=== PATIENT | male | born 1950 | race Caucasian/White ===

== ENCOUNTER 2018-03-05 06:13 | Day surgery (SDC) | payer MEDICARE, OTHER ==
[~2018-03-05] VITALS: Ht 180.3 cm; Wt 112.0 kg
[~2018-03-05 06:13] MED LIST: ASPI81CH PO; Altoprev40 MG PO; Celebrex200 MG PO; Desyrel50 MG PO; EPIPEN 2-P0.3 MG/0.3 IM; FINA5 PO; Flomax0.4 MG PO; LOVA40 PO; METF500C PO; METO50ER PO; MONT10T PO; PANT40 PO; Synthroid50 MCG PO; TEMOVATE15 GM EXT; Tenormin50 MG PO; Voltaren100 GM TD
== END 2018-03-05 13:30 | disposition home or self-care (01) ==
LOC: MHTC 06:13
PROC: 4A023N7 Measurement of Cardiac Sampling and Pressure, Left Heart, Percutaneous Approach (ICD-10-PCS; principal; 2018-03-05)
PROC: 4A033BC Measurement of Arterial Pressure, Coronary, Percutaneous Approach (ICD-10-PCS; principal; 2018-03-05)
PROC: B211YZZ Fluoroscopy of Multiple Coronary Arteries using Other Contrast (ICD-10-PCS; principal; 2018-03-05)
DX: I25.10 Atherosclerotic heart disease of native coronary artery without angina pectoris (principal); R06.02 Shortness of breath; E78.5 Hyperlipidemia, unspecified; E11.9 Type 2 diabetes mellitus without complications; E66.01 Morbid (severe) obesity due to excess calories; E03.9 Hypothyroidism, unspecified; K21.9 Gastro-esophageal reflux disease without esophagitis; Z87.891 Personal history of nicotine dependence
CPT/HCPCS: 85347; 93458; 93571; 99152; 99153; C1769; C1894; J1644; J2250; J3010; J7030; Q9967

== ENCOUNTER 2018-11-19 10:37 | Day surgery (SDC) | payer MEDICARE, BC ==
[~2018-11-19] VITALS: Ht 180.3 cm; Wt 109.4 kg
[~2018-11-19 10:37] MED LIST changes: +CELE200 PO; +GABA100 PO; +LEVO-T75 MCG PO; +LOSARTAN POTAS100 MG PO; +Prozac20 MG PO; +TAMS.4ER PO; +VOLTAREN100 GM TOP
[2018-11-19] MEDS ORDERED: ASPI81CH (11:15)
== END 2018-11-19 12:40 | disposition home or self-care (01) ==
LOC: ORSCSDS 10:37
PROVIDERS: Internal Medicine Gastroenterology
PROC: 0DBK8ZX Excision of Ascending Colon, Via Natural or Artificial Opening Endoscopic, Diagnostic (ICD-10-PCS; principal; 2018-11-19 12:00)
DX: Z12.11 Encounter for screening for malignant neoplasm of colon (principal); D12.2 Benign neoplasm of ascending colon; K64.8 Other hemorrhoids; K21.9 Gastro-esophageal reflux disease without esophagitis; I10 Essential (primary) hypertension; E11.9 Type 2 diabetes mellitus without complications; G47.33 Obstructive sleep apnea (adult) (pediatric); J45.909 Unspecified asthma, uncomplicated; E66.9 Obesity, unspecified; Z68.33 Body mass index [BMI] 33.0-33.9, adult; Z79.82 Long term (current) use of aspirin; Z79.84 Long term (current) use of oral hypoglycemic drugs; Z79.899 Other long term (current) drug therapy; Z87.891 Personal history of nicotine dependence
CPT/HCPCS: 82947; 88305; J7120

== ENCOUNTER 2019-01-04 17:31 | Emergency (ER) | payer MEDICARE, BC ==
[~2019-01-04] VITALS: Ht 180.3 cm; Wt 108.9 kg
[~2019-01-04 17:31] MED LIST changes: +ASPI81CH
[2019-01-04] MEDS ORDERED: Norco 5-325 Ta1 EACH PO (19:53)
== END 2019-01-04 20:06 | disposition home or self-care (01) ==
LOC: ER 17:31
DX: S43.004A Unspecified dislocation of right shoulder joint, initial encounter (principal); M54.9 Dorsalgia, unspecified; W01.198A Fall on same level from slipping, tripping and stumbling with subsequent striking against other object, initial encounter; Z88.8 Allergy status to other drugs, medicaments and biological substances; Z91.010 Allergy to peanuts; Z79.899 Other long term (current) drug therapy; Z79.84 Long term (current) use of oral hypoglycemic drugs; Z79.82 Long term (current) use of aspirin; I10 Essential (primary) hypertension; E78.5 Hyperlipidemia, unspecified; E03.9 Hypothyroidism, unspecified; Z87.891 Personal history of nicotine dependence
CPT/HCPCS: 72070; 73030; 99283-25; A9270-GY

== ENCOUNTER 2019-03-20 11:37 | Emergency (ER) | payer MEDICARE, BC ==
[~2019-03-20] VITALS: Ht 180.3 cm; Wt 108.9 kg
[~2019-03-20 11:37] MED LIST changes: +Norco 5-325 Ta1 EACH PO
[2019-03-20] MEDS ORDERED: EPIPEN 2-P0.3 MG/0.3 IM (13:46)
[2019-03-20] MEDS ORDERED: Prednisone20 MG PO (13:46)
== END 2019-03-20 13:51 | disposition home or self-care (01) ==
LOC: ER 11:37
DX: L50.0 Allergic urticaria (principal); I10 Essential (primary) hypertension; Z91.010 Allergy to peanuts; Z87.891 Personal history of nicotine dependence
CPT/HCPCS: 36415; 96374; 96375; 99282-25; J1100; J1200

== ENCOUNTER 2019-05-08 06:19 | Day surgery (SDC) | payer MEDICARE, BC ==
[~2019-05-08] VITALS: Ht 180.3 cm; Wt 111.4 kg
[~2019-05-08 06:19] MED LIST changes: +Prednisone20 MG PO; -Prozac20 MG PO; +Prozac40 MG PO
--- NOTE | 2019-05-08 08:38 | NUR ---
05/08/19 0838 Roxane Ventura INTERSCALING BLOCK COMPLETED IN OR WITHOUT DIFFICULTY. PT TOLERATED PROCEDURE WELL. 2 CHOLRAPREP STICKS USED TO PREP SURGICAL SITE.
--- NOTE | 2019-05-08 10:43 | NUR ---
05/08/19 1043 Unique Castellanos O2 REMOVED AND SATS DECREASED SLOWLY TO 89-90% ON R/A. O2 NRB REPLACED
== END 2019-05-08 11:50 | disposition home or self-care (01) ==
LOC: ORSCSDS 06:19
PROVIDERS: Orthopaedic Surgery
PROC: 0RNJ0ZZ Release Right Shoulder Joint, Open Approach (ICD-10-PCS; principal; 2019-05-08 07:30)
PROC: 0RJJ4ZZ Inspection of Right Shoulder Joint, Percutaneous Endoscopic Approach (ICD-10-PCS; principal; 2019-05-08 07:30)
PROC: 0LS10ZZ Reposition Right Shoulder Tendon, Open Approach (ICD-10-PCS; principal; 2019-05-08 07:30)
PROC: 0LQ10ZZ Repair Right Shoulder Tendon, Open Approach (ICD-10-PCS; principal; 2019-05-08 07:30)
DX: M75.121 Complete rotator cuff tear or rupture of right shoulder, not specified as traumatic (principal); S46.111A Strain of muscle, fascia and tendon of long head of biceps, right arm, initial encounter; I10 Essential (primary) hypertension; E11.9 Type 2 diabetes mellitus without complications; G47.33 Obstructive sleep apnea (adult) (pediatric); E03.9 Hypothyroidism, unspecified; E66.9 Obesity, unspecified; Z68.33 Body mass index [BMI] 33.0-33.9, adult; E78.00 Pure hypercholesterolemia, unspecified; Z79.899 Other long term (current) drug therapy
CPT/HCPCS: 82947; C1713; J0171; J0330; J0690; J1100; J2250; J2370; J2405; J2704; J2710; J3010; J7120

== ENCOUNTER 2019-12-04 06:40 | Day surgery (SDC) | payer MEDICARE, BC ==
[~2019-12-04] VITALS: Ht 180.3 cm; Wt 110.6 kg
[~2019-12-04 06:40] MED LIST changes: +ATOM60 PO; +Aspirin EC81 MG PO; +CELE100 PO; +HYDPAM25 PO; +LORA.5 PO
--- NOTE | 2019-12-04 11:58 | NUR ---
12/04/19 1158 Lashonda Qureshi 1 MG EPI ADDED TO EACH OF THE FIRST 3 LR BAGS
== END 2019-12-04 12:11 | disposition home or self-care (01) ==
LOC: ORSCSDS 06:40
PROVIDERS: Orthopaedic Surgery
PROC: 0LQ14ZZ Repair Right Shoulder Tendon, Percutaneous Endoscopic Approach (ICD-10-PCS; principal; 2019-12-04 08:00)
PROC: 0RNJ4ZZ Release Right Shoulder Joint, Percutaneous Endoscopic Approach (ICD-10-PCS; principal; 2019-12-04 08:00)
PROC: 0RBJ4ZZ Excision of Right Shoulder Joint, Percutaneous Endoscopic Approach (ICD-10-PCS; principal; 2019-12-04 08:00)
PROC: 0PU Upper Bones, Supplement (ICD-10-PCS; principal; 2019-12-04 08:00)
DX: M75.121 Complete rotator cuff tear or rupture of right shoulder, not specified as traumatic (principal); M19.011 Primary osteoarthritis, right shoulder; M75.51 Bursitis of right shoulder; M75.41 Impingement syndrome of right shoulder; I10 Essential (primary) hypertension; E11.9 Type 2 diabetes mellitus without complications; E03.9 Hypothyroidism, unspecified; E66.9 Obesity, unspecified; Z68.34 Body mass index [BMI] 34.0-34.9, adult; Z87.891 Personal history of nicotine dependence; Z79.899 Other long term (current) drug therapy; Z79.82 Long term (current) use of aspirin; Z79.84 Long term (current) use of oral hypoglycemic drugs
CPT/HCPCS: 82947; C1713; J0171; J0360; J0690; J1100; J1885; J2250; J2405; J2704; J2795; J3010; J7120

== ENCOUNTER 2021-12-13 06:55 | Day surgery (SDC) | payer MEDICARE, BC ==
[~2021-12-13] VITALS: Ht 180.3 cm; Wt 107.3 kg
[~2021-12-13 06:55] MED LIST changes: +Golytely Solu4000 ML PO; +Magic Bullet10 MG PR
[2021-12-13] MEDS ORDERED: DEPO-TESTO200 MG/1 M IM (07:42)
[2021-12-13] MEDS ORDERED: SITA50T2 PO (07:43)
--- NOTE | 2021-12-13 07:57 | NUR ---
12/13/21 Willard Art CALL LIGHT WITHIN REACH. THREE IV ATTEMPTS, FIRST TWO INFILTRATERD. THIRD ATTEMPT SUCCESSFUL. PT TOLERATED IV ATTEMPTS WELL.
== END 2021-12-13 10:44 | disposition home or self-care (01) ==
LOC: ORSCSDS 06:55
PROVIDERS: Orthopaedic Surgery
PROC: 0SBC4ZZ Excision of Right Knee Joint, Percutaneous Endoscopic Approach (ICD-10-PCS; principal; 2021-12-13 08:00)
DX: M17.11 Unilateral primary osteoarthritis, right knee (principal); M23.306 Other meniscus derangements, unspecified meniscus, right knee; M65.9 Synovitis and tenosynovitis, unspecified; I10 Essential (primary) hypertension; E11.9 Type 2 diabetes mellitus without complications; G47.33 Obstructive sleep apnea (adult) (pediatric); K21.9 Gastro-esophageal reflux disease without esophagitis; E78.00 Pure hypercholesterolemia, unspecified; E03.9 Hypothyroidism, unspecified; E66.9 Obesity, unspecified; Z68.33 Body mass index [BMI] 33.0-33.9, adult; Z79.82 Long term (current) use of aspirin; Z79.84 Long term (current) use of oral hypoglycemic drugs; Z79.899 Other long term (current) drug therapy; Z87.891 Personal history of nicotine dependence
CPT/HCPCS: 82947; J0171; J0690; J1100; J1885; J2250; J2370; J2405; J2704; J2795; J3010; J7120

== ENCOUNTER 2023-01-17 10:51 | Emergency (ER) | payer MEDICARE, BC ==
[~2023-01-17] VITALS: Ht 180.3 cm; Wt 108.9 kg
[~2023-01-17 10:51] MED LIST changes: +DEPO-TESTO200 MG/1 M IM; +SITA50T2 PO
== END 2023-01-17 12:34 | disposition home or self-care (01) ==
LOC: ER 10:51
DX: M79.604 Pain in right leg (principal); Z88.8 Allergy status to other drugs, medicaments and biological substances; Z91.010 Allergy to peanuts; Z91.048 Other nonmedicinal substance allergy status; Z79.899 Other long term (current) drug therapy; Z79.82 Long term (current) use of aspirin; I10 Essential (primary) hypertension; E78.5 Hyperlipidemia, unspecified; E03.9 Hypothyroidism, unspecified; M19.90 Unspecified osteoarthritis, unspecified site
CPT/HCPCS: 93971; A9270

== ENCOUNTER 2024-02-28 16:59 | Emergency (ER) | payer MEDICARE, BC ==
[~2024-02-28] VITALS: Ht 180.3 cm; Wt 108.9 kg
[2024-02-28] MEDS ORDERED: Ondansetron HCl 2 MG / ML 2ML Vial IV ONE ×2 (17:10→18:40)
[2024-02-28 17:52] LABS: BASOPHILS ABSOLUTE AUTO 0.04 K/mm3 (0.00-0.23); BASOPHILS PERCENT AUTO 1 % (0-2); EOSINOPHILS ABSOLUTE AUTO 0.16 K/mm3 (0.00-0.68); EOSINOPHILS PERCENT AUTO 3 % (0-6); Hematocrit 45.1 % (37.0-53.0); IMMATURE GRAN ABSOLUTE AUTO 0.01 K/mm3 (0.00-0.10); IMMATURE GRAN PERCENT AUTO 0 % (0-1); LYMPHOCYTES PERCENT AUTO 32 % (21-46); MONOCYTES ABSOLUTE AUTO 0.78 K/mm3 (0.16-1.47); MONOCYTES PERCENT AUTO 13 % (4-13); Mean Corpuscular HGB 33.1 pg (26.0-34.0); Mean Corpuscular HGB Conc 35.5 g/dL (31.5-36.5); Mean Corpuscular Volume 93 fL (80-100); Mean Platelet Volume 11.3 fL (9.1-12.4); NEUTROPHILS ABSOLUTE AUTO 3.21 K/mm3 (1.96-9.15); NEUTROPHILS PERCENT AUTO 52 % (41-73); Platelet Count 157 K/mm3 (150-400); RDW Coefficient Variation 13.4 % (11.7-14.2); RDW Standard Deviation 45.7 fL (35.1-46.3); Red Blood Cell Count 4.83 M/mm3 (4.30-5.90)
[2024-02-28 18:09] LABS: Albumin, Blood 3.6 g/dL (3.4-5.0); Bilirubin, Total 0.6 mg/dL (0.1-1.0); Bun/Creatinine Ratio 26.8 (12.0-20.0); Calcium, Blood 9.7 mg/dL (8.5-10.1); Creatinine, Blood 0.78 mg/dL (0.60-1.20); Globulin, Blood 3.6 g/dL (2.2-4.0); Potassium, Blood 3.9 mmol/L (3.5-5.5); Total Protein, Blood 7.2 g/dL (6.4-8.2)
[2024-02-28] MEDS ORDERED: NS 1,000 ML IV SCH (18:40)
[2024-02-28] MEDS ORDERED: Prochlorperazine Edisylate 10 mg Vial IV ONE (19:00)
[2024-02-28] MEDS ORDERED: ONDA4ODT MM (20:15)
[2024-02-28] MEDS ORDERED: Azithromycin 250 MG Tab PO ONE (20:15)
[2024-02-28 20:30] VITALS: BP 148/73
== END 2024-02-28 20:30 | disposition home or self-care (01) ==
LOC: ER 16:59
PROVIDERS: Physician Assistant
DX: K52.9 Noninfective gastroenteritis and colitis, unspecified (principal); I10 Essential (primary) hypertension; E78.5 Hyperlipidemia, unspecified; E03.9 Hypothyroidism, unspecified; M19.90 Unspecified osteoarthritis, unspecified site
CPT/HCPCS: 74177; 80053; 83690; 85025; 96374-59; 96375; 99284-25; A9270; J0780; J2405; J7030; Q9967

== ENCOUNTER 2025-04-28 16:11 | Emergency (ER) | payer MEDICARE ==
[~2025-04-28] VITALS: Ht 180.3 cm; Wt 108.9 kg
[~2025-04-28 16:11] MED LIST changes: +ONDA4ODT MM
[2025-04-28] MEDS ORDERED: VYNDAMAX61 MG PO (16:24)
[2025-04-28] MEDS ORDERED: Flomax0.4 MG PO (16:24)
[2025-04-28] MEDS ORDERED: JARDIANCE10 MG PO (16:24)
[2025-04-28 17:41] VITALS: BP 131/71
== END 2025-04-28 17:39 | disposition home or self-care (01) ==
LOC: ER 16:11
DX: S09.90XA Unspecified injury of head, initial encounter (principal); S70.11XA Contusion of right thigh, initial encounter; W11.XXXA Fall on and from ladder, initial encounter; I10 Essential (primary) hypertension; E78.5 Hyperlipidemia, unspecified; E03.9 Hypothyroidism, unspecified; Z79.82 Long term (current) use of aspirin; Z79.890 Hormone replacement therapy; Z79.899 Other long term (current) drug therapy; Z91.010 Allergy to peanuts; Z91.048 Other nonmedicinal substance allergy status
CPT/HCPCS: 70450; 72125; 99284-25